=== PATIENT | male | born 1975 | race Caucasian/White ===

== ENCOUNTER 2017-07-31 10:00 | Emergency (ER) | payer BC ==
[2017-07-31 10:04] VITALS: BP 135/89
--- NOTE | 2017-07-31 10:16 | EDM.PDOC ---
ED HPI GENERAL MEDICAL PROBLEM - General Chief Complaint: General Stated Complaint: tooth pain Time Seen by Provider: 07/31/17 10:10 Source of Information: Reports: Patient History Limitations: Reports: No Limitations - History of Present Illness INITIAL COMMENTS - FREE TEXT/NARRATIVE: Patient is a 41-year-old who is seen with chief complaint of left lower third molar fracture of tooth states pain started about 3 days ago he got to the point where he can tolerating is scheduled to see the dentist Tuesday noticed significant swelling right lower jaw Onset: Gradual Duration: Day(s): Location: Reports: Face Quality: Reports: Ache, Throbbing Severity: Moderate Improves with: Reports: None Worsens with: Reports: Cold Therapy Context: Reports: Sick Contact Associated Symptoms: Reports: No Other Symptoms - Related Data Allergies Allergy/AdvReac Type Severity Reaction Status Date / Time No Known Allergies Allergy Verified 07/31/17 10:02 Past Medical History HEENT History: Reports: Impaired Vision, Other (See Below) Other HEENT History: 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 Denies: Arrhythmia, Blood Clots/VTE/DVT , CAD, Heart Murmur, High Cholesterol, Hypertension, SD Gastrointestinal History: Reports: Other (See Below) Other Gastrointestinal History: Dysphagia with esophageal foreign body on Genitourinary History: Reports: None. Denies: Chronic Renal Insuffiency, Renal Calculus, STD, Urinary Incontinence, UTI, Recurrent Neurological History: Reports: None. Denies: Concussion, Headaches, Chronic, Head Trauma, Migraines, Seizure, Speech Problems Psychiatric History: Reports: None. Denies: Abuse, Victim of, ADD, ADHD, Addiction, Anxiety, Depression, Psych Hospitalization(s), Suicide Attempt, Suicidal Ideation Endocrine/Metabolic History: Reports: None. Denies: Diabetes, Type I, Diabetes , Type II, Hypothyroidism, IDDM Immunologic History: Reports: None. Denies: AIDS, HIV, SLE Oncologic (Cancer) History: Reports: None Dermatologic History: Reports: None. Denies: Eczema, Psoriasis - Infectious Disease History Infectious Disease History: Reports: Chicken Pox - Past Surgical History Head Surgeries/Procedures: Reports: Other (See Below) HEENT Surgical History: Reports: Oral Surgery - Past Imaging History Past Imaging History: Reports: None. Denies: CAT Scan, MRI Social & Family History - Family History GI: Reports: GERD, Other (See Below) Other GI Family History: Brother with history of dysphagia - Tobacco Use Smoking Status *Q: Never Smoker Second Hand Smoke Exposure: No - Caffeine Use Caffeine Use: Reports: Soda (2 sodas per day). Denies: Coffee, Energy Drinks, Tea - Alcohol Use Days Per Week of Alcohol Use: 2 (No previous DWIs, problems with alcohol abuse, etc.) Number of Drinks Per Day: 3 (Usually beer) Total Drinks Per Week: 6 - Living Situation & Occupation Living situation: Reports: Single, Alone Occupation: Employed ED ROS GENERAL - Review of Systems Review Of Systems: See Below HEENT: Reports: Other (Toothache) Respiratory: Reports: No Symptoms Cardiovascular: Reports: No Symptoms Endocrine: Reports: No Symptoms GI/Abdominal: Reports: No Symptoms : Reports: No Symptoms Musculoskeletal: Reports: No Symptoms Skin: Reports: No Symptoms Neurological: Reports: No Symptoms Psychiatric: Reports: No Symptoms Hematologic/Lymphatic: Reports: No Symptoms Immunologic: Reports: No Symptoms ED EXAM, GENERAL - Physical Exam Exam: See Below Exam Limited By: No Limitations General Appearance: Alert Ears: Normal External Exam, Normal Canal, Hearing Grossly Normal, Normal TMs Nose: Normal Inspection Throat/Mouth: Other (Toothache) Head: Atraumatic, Normocephalic Neck: Normal Inspection, Supple, Non-Tender, Full Range of Motion Respiratory/Chest: No Respiratory Distress, Lungs Clear, Normal Breath Sounds, No Accessory Muscle Use, Chest Non-Tender Cardiovascular: Normal Peripheral Pulses, Regular Rate, Rhythm, No Edema, No Gallop, No JVD, No Murmur, No Rub GI/Abdominal: Normal Bowel Sounds, Soft, Non-Tender, No Organomegaly, No Distention, No Abnormal Bruit, No Mass (Male) Exam: Deferred Rectal (Males) Exam: Deferred Back Exam: Normal Inspection, Full Range of Motion, NT Extremities: Normal Inspection, Normal Range of Motion, Non-Tender, Normal Capillary Refill, No Pedal Edema Neurological: Alert, Oriented, CN II-XII Intact, Normal Cognition, Normal Gait, Normal Reflexes, No Motor/Sensory Deficits Psychiatric: Normal Affect, Normal Mood Skin Exam: Warm, Dry, Intact, Normal Color, No Rash Lymphatic: No Adenopathy Course - Vital Signs Last Recorded V/S: Last Vital Signs Temp 98.0 F 07/31/17 10:03 Pulse 87 07/31/17 10:03 Resp 16 07/31/17 10:03 BP 135/89 07/31/17 10:03 Pulse Ox 99 07/31/17 10:03 Departure - Departure Time of Disposition: 10:18 Disposition: Home, Self-Care 01 Condition: Fair Clinical Impression: Tooth fractures Qualifiers: Encounter type: initial encounter Fracture type: open Qualified Code(s): S02.5XXB - Fracture of tooth (traumatic), initial encounter for open fracture - Discharge Information Care Plan Goals: At this time patient will be started on antibiotics and pain control He is to see the dentist tomorrow
== END 2017-07-31 10:40 | disposition home or self-care (01) ==
LOC: LL.ED 10:00
DX: S02.5XXB Fracture of tooth (traumatic), initial encounter for open fracture (principal); X58.XXXA Exposure to other specified factors, initial encounter
CPT/HCPCS: 99282

== ENCOUNTER 2017-08-20 03:15 | Emergency (ER) | payer BC ==
[2017-08-20 03:19] VITALS: BP 119/73
--- NOTE | 2017-08-20 04:07 | EDM.PDOC ---
ED HPI GENERAL MEDICAL PROBLEM - General Chief Complaint: Genitourinary Problem Stated Complaint: right testicle swelling Time Seen by Provider: 08/20/17 04:03 Source of Information: Reports: Patient History Limitations: Reports: No Limitations - History of Present Illness INITIAL COMMENTS - FREE TEXT/NARRATIVE: Patient is a 41-year-old who presented with right testicular pain states that he was sleeping and woke up with right testicular pain 8 out of 10 denies any activity or trauma to area. Onset: Sudden Duration: Minutes:, Getting Worse Location: Reports: Other (Genitourinary) Quality: Reports: Throbbing Severity: Severe Improves with: Reports: None Worsens with: Reports: Movement Context: Reports: Sick Contact Associated Symptoms: Reports: No Other Symptoms Right Groin Pain Score (Numeric/FACES): 8 - Related Data Allergies Allergy/AdvReac Type Severity Reaction Status Date / Time No Known Allergies Allergy Verified 08/20/17 03:18 Home Meds: Home Meds . 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 Cardiovascular History: Reports: None Gastrointestinal History: Reports: Other (See Below) Other Gastrointestinal History: Dysphagia with esophageal foreign body on Genitourinary History: Reports: None Neurological History: Reports: None Psychiatric History: Reports: None Endocrine/Metabolic History: Reports: None Immunologic History: Reports: None Oncologic (Cancer) History: Reports: None Dermatologic History: Reports: None - Infectious Disease History Infectious Disease History: Reports: Chicken Pox - Past Surgical History Head Surgeries/Procedures: Reports: Other (See Below) HEENT Surgical History: Reports: Oral Surgery Respiratory Surgical History: Reports: None Musculoskeletal Surgical History: Reports: None - Past Imaging History Past Imaging History: Reports: None. Denies: CAT Scan, MRI Social & Family History - Family History GI: Reports: GERD, Other (See Below) Other GI Family History: Brother with history of dysphagia - Tobacco Use Smoking Status *Q: Never Smoker Second Hand Smoke Exposure: No - Caffeine Use Caffeine Use: Reports: Soda - Alcohol Use Days Per Week of Alcohol Use: 2 (No previous DWIs, problems with alcohol abuse, etc.) Number of Drinks Per Day: 3 (Usually beer) Total Drinks Per Week: 6 - Recreational Drug Use Recreational Drug Use: No - Living Situation & Occupation Living situation: Reports: Single, Alone Occupation: Employed ED ROS GENERAL - Review of Systems Review Of Systems: See Below Constitutional: Reports: No Symptoms HEENT: Reports: No Symptoms Respiratory: Reports: No Symptoms Cardiovascular: Reports: No Symptoms Endocrine: Reports: No Symptoms GI/Abdominal: Reports: No Symptoms : Reports: Other (Right testicular pain) Musculoskeletal: Reports: No Symptoms Skin: Reports: No Symptoms Neurological: Reports: No Symptoms Psychiatric: Reports: No Symptoms ED EXAM, RENAL/ - Physical Exam Exam: See Below Exam Limited By: No Limitations General Appearance: Alert, WD/WN, No Apparent Distress Ears: Normal External Exam Nose: Normal Inspection, Normal Mucosa, No Blood Throat/Mouth: Normal Inspection, Normal Lips, Normal Teeth, Normal Gums, Normal Oropharynx, Normal Voice, No Airway Compromise Head: Atraumatic, Normocephalic Neck: Normal Inspection, Supple, Non-Tender, Full Range of Motion Respiratory/Chest: No Respiratory Distress, Lungs Clear, Normal Breath Sounds, No Accessory Muscle Use, Chest Non-Tender Cardiovascular: Normal Peripheral Pulses, Regular Rate, Rhythm, No Edema, No Gallop, No JVD, No Murmur, No Rub GI/Abdominal: Normal Bowel Sounds, Soft, Non-Tender, No Organomegaly, No Distention, No Abnormal Bruit, No Mass (Male) Exam: Scrotal Swelling, Scrotum Tenderness (R), Testicular Tenderness (R) Rectal (Males) Exam: Deferred Back Exam: Normal Inspection, Full Range of Motion, NT Extremities: Normal Inspection, Normal Range of Motion, Non-Tender, Normal Capillary Refill, No Pedal Edema Neurological: Alert, Oriented, CN II-XII Intact, Normal Cognition, Normal Gait, Normal Reflexes, No Motor/Sensory Deficits Psychiatric: Normal Affect, Normal Mood Skin Exam: Ecchymosis (Right testicle) Lymphatic: No Adenopathy Course - Vital Signs Last Recorded V/S: Last Vital Signs Temp 97.7 F 08/20/17 03:18 Pulse 77 08/20/17 03:18 Resp 16 08/20/17 03:18 BP 119/73 08/20/17 03:18 Pulse Ox 98 08/20/17 03:18 Departure - Departure Time of Disposition: 04:29 Disposition: DC/Tfer to Acute Hospital 02 Clinical Impression: Right testicular torsion, Testicular pain - Discharge Information Referrals: PCP,None [Primary Care Provider] - - Problem List & Annotations (1) Right testicular torsion SNOMED Code(s): 58743721 Code(s): N44.00 - TORSION OF TESTIS, UNSPECIFIED Status: Acute Annotation /Comment:: At this time patient was examined right testicular swelling and tenderness to palpation patient needs an ultrasound of the testicle will refer to [facility] emergency department for ultrasound and treatment (2) Testicular pain SNOMED Code(s): 62767207 Code(s): N50.819 - TESTICULAR PAIN, UNSPECIFIED Status: Acute Annotation/ Comment:: Same as above - Problem List Review Problem List Initiated/Reviewed/Updated: Yes - Assessment/Plan Plan: Assessment testicular pain possible testicular torsion Plan At this time patient will be given pain medicines will go ahead and get pain control for transferring. Spoke with Dr. Merchant who agreed to accept him Patient will be given 400 mg of Cipro IV
[2017-08-20] MEDS ORDERED: HYDROmorphone 1 MG/ML Syringe IVPUSH ONE (04:11)
[2017-08-20] MEDS ORDERED: Sodium Chloride 0.9% 10 ML Syringe FLUSH PRN (04:28)
[2017-08-20 04:29] LABS: CHLORIDE,CL 101 mmol/L (98-107); SODIUM,NA 140 mmol/L (136-145)
[2017-08-20] MEDS ORDERED: Sodium Chloride 0.9% 1,000 ML IV SCH (04:30)
[2017-08-20] MEDS ORDERED: Ciprofloxacin in D5W 400 MG in Premix Bag 1 BAG IV ONE ×2 (04:33)
== END 2017-08-20 04:38 ==
LOC: LL.ED 03:15
DX: N44.00 Torsion of testis, unspecified (principal)
CPT/HCPCS: 36415; 80048; 83605; 85025; 96374; 99285; J1170; J7030

== ENCOUNTER 2018-06-17 13:23 | Emergency (ER) | payer BC ==
[2018-06-17 13:33] VITALS: BP 131/89
--- NOTE | 2018-06-17 13:38 | EDM.PDOC ---
ED HPI GENERAL MEDICAL PROBLEM - General Chief Complaint: General Stated Complaint: Food stuck in throat Time Seen by Provider: 06/17/18 13:25 Source of Information: Reports: Patient History Limitations: Reports: No Limitations - History of Present Illness INITIAL COMMENTS - FREE TEXT/NARRATIVE: Patient is a 42 year old man seen with chief complaint difficulty swallowing patient had a cheeseburger with avalos felt the avalos was stuck around the neck area had difficult fine swallowing liquids came in for evaluation once he was in he took some barium and felt everything moving right away C-spine was done no foreign object was noted Onset: Today Duration: Minutes:, Improving Location: Reports: Neck Quality: Reports: Pressure Severity: Moderate Improves with: Reports: None Worsens with: Reports: None Context: Reports: Trauma Associated Symptoms: Reports: No Other Symptoms - Related Data Allergies Allergy/AdvReac Type Severity Reaction Status Date / Time No Known Allergies Allergy Verified 06/17/18 13:26 Home Meds: Home Meds . 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 Cardiovascular History: Reports: None Gastrointestinal History: Reports: Other (See Below) Other Gastrointestinal History: Dysphagia with esophageal foreign body on Genitourinary History: Reports: None Neurological History: Reports: None Psychiatric History: Reports: None Endocrine/Metabolic History: Reports: None Immunologic History: Reports: None Oncologic (Cancer) History: Reports: None Dermatologic History: Reports: None - Infectious Disease History Infectious Disease History: Reports: Chicken Pox - Past Surgical History Head Surgeries/Procedures: Reports: Other (See Below) HEENT Surgical History: Reports: Oral Surgery Respiratory Surgical History: Reports: None Musculoskeletal Surgical History: Reports: None - Past Imaging History Past Imaging History: Reports: None. Denies: CAT Scan, MRI Social & Family History - Family History GI: Reports: GERD, Other (See Below) Other GI Family History: Brother with history of dysphagia - Caffeine Use Caffeine Use: Reports: Soda - Living Situation & Occupation Living situation: Reports: Single, Alone Occupation: Employed ED ROS GENERAL - Review of Systems Review Of Systems: See Below Constitutional: Reports: No Symptoms HEENT: Reports: No Symptoms Respiratory: Reports: No Symptoms Cardiovascular: Reports: No Symptoms Endocrine: Reports: No Symptoms GI/Abdominal: Reports: No Symptoms : Reports: No Symptoms Musculoskeletal: Reports: No Symptoms Skin: Reports: No Symptoms Neurological: Reports: No Symptoms Psychiatric: Reports: No Symptoms Hematologic/Lymphatic: Reports: No Symptoms Immunologic: Reports: No Symptoms ED EXAM, GENERAL - Physical Exam Exam: See Below Exam Limited By: No Limitations General Appearance: Alert, WD/WN, No Apparent Distress Ears: Normal External Exam, Normal Canal, Hearing Grossly Normal, Normal TMs Ear Exam: Bilateral Ear: Auricle Normal, Canal Normal, TM normal Nose: Normal Inspection, Normal Mucosa, No Blood Throat/Mouth: Normal Inspection, Normal Lips, Normal Teeth, Normal Gums, Normal Oropharynx, Normal Voice, No Airway Compromise Head: Atraumatic, Normocephalic Neck: Normal Inspection, Supple, Non-Tender, Full Range of Motion Respiratory/Chest: No Respiratory Distress Cardiovascular: Normal Peripheral Pulses, Regular Rate, Rhythm, No Edema, No Gallop, No JVD, No Murmur, No Rub GI/Abdominal: Normal Bowel Sounds, Soft, Non-Tender, No Organomegaly, No Distention, No Abnormal Bruit, No Mass (Male) Exam: Deferred Rectal (Males) Exam: Deferred Back Exam: Normal Inspection, Full Range of Motion, NT Extremities: Normal Inspection, Normal Range of Motion, Non-Tender, Normal Capillary Refill, No Pedal Edema Departure - Departure Time of Disposition: 13:46 Disposition: Home, Self-Care 01 Condition: Good Clinical Impression: FB esophagus Qualifiers: Encounter type: initial encounter Qualified Code(s): T18.108A - Unspecified foreign body in esophagus causing other injury, initial encounter - Discharge Information *PRESCRIPTION DRUG MONITORING PROGRAM REVIEWED*: No *COPY OF PRESCRIPTION DRUG MONITORING REPORT IN PATIENT HARMAN: No Referrals: PCP,None [Primary Care Provider] - Care Plan Goals: Patient was given barium he was able to swallow and then felt that everything had gone in therefore we gave him a neutral brain gr bar which he was able to tolerate and water which he tolerated doing well we'll discharge home follow up as needed
== END 2018-06-17 14:00 | disposition home or self-care (01) ==
LOC: LL.ED 13:23
DX: T18.128A Food in esophagus causing other injury, initial encounter (principal)
CPT/HCPCS: 70360; 72020; 99284